=== PATIENT | male | born 1985 | race Caucasian/White ===

== ENCOUNTER 2025-03-04 20:30 | Emergency (ER) | payer BC, SELFPAY ==
[2025-03-04 20:34] VITALS: BP 178/115
[2025-03-04 22:00] VITALS: BP 144/75
[2025-03-05] VITALS: BP 138/73
--- NOTE | 2025-03-05 01:40 | ED.GENMED ---
History of Present Illness
General
Chief Complaint: Skin Surface Trauma
Source: patient
Time Seen by Provider: 03/05/25 01:31
Nursing documentation reviewed up to this point in time: agreed with
History of Present Illness
History of Present Illness:
39-year-old male presents to the emergency department with right middle finger partial amputation. He states that he tripped into a door and jammed his finger between the barrel hinge and his forehead. He states that the middle finger took the
brunt of the injury, lacerating on the metal of the door frame. Patient is unsure of his tetanus status. He knows that he got 1 with the of one of his children but they range in age from 4 on up and he does not think it was the most recent
child. He is fairly certain that his last tetanus shot was greater than 5 years ago. He will receive 1 today. He is not on any blood thinners.
Review of Systems
Review of Systems
Allergies reviewed?: Yes
All Other Systems: ROS reviewed and negative except as documented in HPI and ROS
Constitutional: Reports no symptoms
EENT: Reports no symptoms
Respiratory: Reports no symptoms
Cardiac: Reports no symptoms
ABD/GI: Reports no symptoms
: Reports no symptoms
Musculoskeletal: Reports joint pain
Skin: Reports no symptoms
Neurological: Reports no symptoms
Endocrine: Reports no symptoms
Hematologic/Lymphatic: Reports no symptoms
Psychiatric: Reports anxiety
Phy Exam
General Physical Exam
General Presentation: well appearing and mild distress
General Skin: warm and dry
General Habitus: normal
General Mental: alert
ENT Exam
ENT Exam: EOMI and neck supple
Pulmonary Exam
Pulmonary Exam: no respiratory distress and no cough
Neurological Exam
Neurological Exam: alert and oriented x3
Musculoskeletal Exam
Musculoskeletal Exam: full ROM, neuro vasc intact and other (Soft tissue amputation of the distal aspect of the right middle finger. Avulsion laceration)
Skin Exam
Skin Exam: laceration (Right middle finger)
Psychiatric Exam
Psychiatric Exam: normal mood/affect
Course
Orders/Labs/Results
Orders:
Orders
03/04/25 20:39
Finger(s)/Thumb 2 View Rt [CR Finger(s)/thumb Min 2 Vw Rt] Urgent
Comment:
Reason For Exam: partial amputation to middle
Indicate Which Finger:: Middle Finger
03/05/25 01:31
Tetanus/Diphth/Acelpertussis [Adacel] 0.5 ml IM .ONCE ONE
03/05/25 01:40
Cephalexin Monohydrate [Keflex] 500 mg PO NOW STA
Vital Signs
Initial and Last Documented VS:
Initial Vital Signs
Temp Pulse Resp BP Pulse Ox
98.6 F 102 16 178/115 98
03/04/25 20:34 03/04/25 20:34 03/04/25 20:34 03/04/25 20:34 03/04/25 20:34
Last Documented Vital Signs
Temp Pulse Resp BP Pulse Ox
98.6 F 74 24 138/73 99
03/04/25 20:34 03/05/25 00:00 03/05/25 02:00 03/05/25 00:00 03/05/25 00:00
*Radiology
Radiology exam reviewed: radiology read reviewed (Soft tissue amputation of the distal aspect of the right middle finger. Comminuted displaced fracture of the distal aspect of the distal phalanx of the right middle finger.)
*Critical Care Note
Total Time (30-74mins, 75-104mins- exclusive of procedures): Not Applicable
Patient Management
Social determinants of health affecting care: Strong social support
Update Note
Update Note:
Patient received a tetanus shot.
Dose of Keflex
Follow-up with Ortho
I personally dressed the wound with an Optifoam over Surgicel wrapped in tube gauze with a protective splint.
ED Attending Note
-
Portions of this chart may have been created with voice recognition software.� Occasional wrong word or��sound alike� substitutions may have occurred due to the inherent limitations of voice recognition software.
Discharge Plan
Departure
Patient Disposition: Home (Routine Discharge)
Date of Disposition: 03/05/25
Time of Disposition: 02:39
Patient with high blood pressure during this ER visit?: Yes
Condition: Good
Discharge Problem:
Avulsion of skin, tuft fracture
Instructions: Wound Care (DC), Finger Fracture ED, BLOOD PRESSURE
Prescriptions:
New
cephalexin 500 mg capsule
500 mg PO BID 10 Days Qty: 20 0RF
Referrals:
Juan Carlos Vargas MD [Active] - Next open appointment
NONE,* [Family Provider] -
Activity Restrictions/Additional Instructions:
Thank You for choosing [facility].
It was a pleasure meeting you and taking part in your care. We hope for your continued healing and wellness.
Please read discharge instructions in their entirety. However, they are for general education and may not describe your exact diagnosis at discharge. Information on your ER visit and medical conditions were discussed with you along with appropriate
follow up information...
If indicated, please take your medications as instructed and indicated on discharge paperwork.
Please schedule a follow up appointment as directed. Call to schedule an appointment
Please return to the emergency department with ANY change in, persisting, or worsening of symptoms. If any of your symptoms do not improve, or persist, or become more severe within 6-12 hours, please return to the emergency department for further
care.
Please return to the emergency department if you develop a headache, neck pain/stiffness, fever greater than 100.4F, chest pain, shortness of breath, persistent nausea, vomiting, slurred speech, difficulty walking, numbness/tingling, weakness, signs
of infection or any other symptoms that are worrisome to you.
If you have any questions or concerns please do not hesitate to call the Hospital at or E-mail me directly at [email or web address]
Interventions
Interventions:
*Risk Screen - Suicide Last Done: 03/04/25 20:34
*General Assessment Last Done: 03/04/25 20:34
*Neglect/Abuse Screening Last Done: 03/04/25 20:34
*ED- Fall Risk Assessment Last Done: 03/04/25 20:34
*ED COVID-19 Vaccine History Last Done: 03/04/25 20:34
ED-Skin Assessment Last Done: 03/04/25 22:56
Discharge Date and Time
Print Language: NICARAGUAN
[2025-03-05] MEDS: ADACEL 0.5 ML IM (02:08)
[2025-03-05] MEDS: KEFLEX 500 MG PO (02:08)
== END 2025-03-05 02:50 | disposition home or self-care (01) ==
LOC: EMR 20:30
PROVIDERS: EMERGENCY PHYSICIAN Student in an Organized Health Care Education/Training Program
DX: S62.632B Displaced fracture of distal phalanx of right middle finger, initial encounter for open fracture (principal); W23.0XXA Caught, crushed, jammed, or pinched between moving objects, initial encounter; Z23 Encounter for immunization
CPT/HCPCS: 29130; 99283; 90471; 73140; 90715